=== PATIENT | female | born 1990 ===

== ENCOUNTER 2021-01-21 18:46 | Emergency (ER) | payer SELFPAY ==
[~2021-01-21] VITALS: Ht 162.6 cm; Wt 139.2 kg
[2021-01-21 18:51] VITALS: BP 132/88
== END 2021-01-21 19:49 | disposition left against medical advice (07) ==
LOC: M ED 18:46
DX: Z53.21 Procedure and treatment not carried out due to patient leaving prior to being seen by health care provider (principal)